=== PATIENT | female | born 1960 | race Two or more races ===

== ENCOUNTER 2020-10-16 11:38 | Emergency (ER) | payer OTHER ==
--- NOTE | 2020-10-16 11:38 | NUR ---
BIBA from home with respiratory full arrest, family reports 3 day c/o worse headache. NKDA, PMH family denies, MEDS family denies. Paramedics bagging patient on 100% FiO2, patient has own respirations, RA sat 97%. Patient vomiting, suctioned, unable to maintain airway, HOB elevated, head turned and suctioned Patient unresponsive, pupils pinpoint, responsive only to pain withdrawl. No facial droop, no purposeful movement of exts VVS except B/P, with HTN 197/103. Dr. Cleary at bedside, wants CT scan, will continue to monitor
--- NOTE | 2020-10-16 11:39 | NUR ---
Patient has right tibial intraos IV, new IV started #16g right FA, saline locked
[2020-10-16] MEDS ORDERED: ETOMIDATE 20 MG/10 ML VIAL IVP ONE (12:00)
[2020-10-16] MEDS ORDERED: ROCURONIUM 50 MG/5 ML VIAL IV ONE (12:00)
--- NOTE | 2020-10-16 12:06 | NUR ---
Dr. Mcpherson using glidescope to intubate, 7.5F ETT 21cm @ lip line.
--- NOTE | 2020-10-16 12:09 | NUR ---
NGT placed and #16F nguyễn catheter, clear yellow urine returned
--- NOTE | 2020-10-16 12:19 | NUR ---
IV started #20g left AC and blood drawn
--- NOTE | 2020-10-16 12:25 | NUR ---
Portable CXR taken
[2020-10-16] MEDS ORDERED: PROPOFOL 1000 MG/100 ML PREMIX 100 ML IV ONE (12:28)
--- NOTE | 2020-10-16 12:38 | NUR ---
Propofol drip started @ 5 mcg/kg/min. Estimated weight at 57 kg
--- NOTE | 2020-10-16 13:00 | NUR ---
Patient taken to head CT scan via gurney, bagged with O2 and BVM to ETT
--- NOTE | 2020-10-16 13:16 | NUR ---
Patient returned from CT scan, reconnected to cardiac care nurse, HOB elevated Ventilator to ETT, VVS Patient only responding to painful stimuli
--- NOTE | 2020-10-16 14:28 | NUR ---
Patient's daughter at bedside, Dr. Cleary speaking with patient's family
--- NOTE | 2020-10-16 15:33 | NUR ---
Patient's daughter speaking with Dr. Cleary
--- NOTE | 2020-10-16 17:01 | NUR ---
Vital signs all on downtime forms and paper copies
[2020-10-16] MEDS ORDERED: HYDROcodone/APAP 7.5/325 MG 1 TAB PO PRN (17:15)
[2020-10-16] MEDS ORDERED: ZOLPIDEM 5 MG TAB PO PRN (17:15)
[2020-10-16] MEDS ORDERED: ONDANSETRON 4 MG/2 ML VIAL IM/IVP PRN (17:15)
[2020-10-16] MEDS ORDERED: ACETAMINOPHEN 325 MG TAB PO PRN (17:15)
[2020-10-16] MEDS ORDERED: DOCUSATE SODIUM 100 MG GELCAP PO PRN (17:15)
[2020-10-16] MEDS ORDERED: NACL 0.9% 1,000 ML IV SCH (17:15)
[2020-10-16] MEDS ORDERED: guaiFENesin DM 200/20 MG-10 ML 10 ML UDC PO PRN (17:15)
[2020-10-16] MEDS ORDERED: POTASSIUM CHLORIDE 40 MEQ, LIDOCAINE MPF 1% 25 MG in NACL 0.9% 250 ML IV PRN (17:15)
[2020-10-16] MEDS ORDERED: PROPOFOL 1000 MG/100 ML PREMIX 100 ML IV PRN (17:20)
[2020-10-16] MEDS ORDERED: MORPHINE SULFATE 50 MG in NACL 0.9% 45 ML IV PRN (17:20)
[2020-10-16] MEDS ORDERED: NACL 3% 500 ML IV ONE (17:45)
--- NOTE | 2020-10-16 18:02 | NUR ---
Grace swab collected.
--- NOTE | 2020-10-16 18:30 | NUR ---
1700cc clear urine output drained emptied from nguyễn catheter
--- NOTE | 2020-10-16 18:35 | NUR ---
[facility] ambulance arrived to transport patient to [facility] [place]
--- NOTE | 2020-10-16 18:40 | NUR ---
Detailed report called to Teri at [facility] [place], questions answered. COVID-1- CHALO swab NEGATIVE
[2020-10-16 19:05] VITALS: BP 161/99
--- NOTE | 2020-10-16 19:05 | NUR ---
Patient transported [facility] via [facility] ambulance, detailed report given to ILIR Frost
[2020-10-17] MEDS ORDERED: PANTOPRAZOLE 40 MG INJ VIAL IVP SCH (09:00)
[2020-10-17] MEDS ORDERED: PANTOPRAZOLE 40 MG TABEC PO SCH (09:00)
--- NOTE | 2020-10-28 14:15 | NUR ---
LATE ENTRY -- NORMAL SALINE ENDED AT 1851 10/16/20
== END 2020-10-16 19:05 | disposition short-term general hospital (02) ==
LOC: MED 11:38
DX: I62.9 Nontraumatic intracranial hemorrhage, unspecified (principal); Z20.828 Contact with and (suspected) exposure to other viral communicable diseases; J96.90 Respiratory failure, unspecified, unspecified whether with hypoxia or hypercapnia; R11.10 Vomiting, unspecified
CPT/HCPCS: 31500; 70450; 71045; 87426; 96360; 99285; J2704; J3490; 96361